=== PATIENT | female | born 1945 | race Two or more races ===

== ENCOUNTER 2018-11-19 17:33 | Emergency (ER) | payer MEDICARE, MEDICAID ==
[~2018-11-19] VITALS: Ht 152.4 cm; Wt 61.2 kg
[2018-11-19] MEDS ORDERED: ATOR10TA PO (17:50)
[2018-11-19] MEDS ORDERED: OMEP20CA10 PO (17:50)
[2018-11-19] MEDS ORDERED: GABA-534 PO (17:50)
[2018-11-19] MEDS ORDERED: SEVE800T8 PO (17:50)
[2018-11-19] MEDS ORDERED: FOLI1TAB16 PO (17:50)
[2018-11-19] MEDS ORDERED: ASPI81TA31 PO (17:50)
[2018-11-19] MEDS ORDERED: OMEG1CAP55 PO (17:50)
[2018-11-19] MEDS ORDERED: ACET-2605 PO (17:50)
[2018-11-19] MEDS ORDERED: DOCU-274 PO (17:50)
[2018-11-19 18:00] LABS: EOSINOPHILS # (AUTO) 0.1 K/uL (0.0-0.7); EOSINOPHILS % (AUTO) 1.2 % (0.0-7.0); HEMATOCRIT 33.7 % (31.2-41.9); HEMOGLOBIN 11.2 g/dL (10.9-14.3); LYMPHOCYTES # (AUTO) 0.8 K/uL (20.0-40.0); LYMPHOCYTES % (AUTO) 18.6 % (20.5-51.5); MEAN CORPUSCULAR HEMOGLOBIN 29.7 uug (24.7-32.8); MEAN CORPUSCULAR HGB CONC 33 g/dL (32.3-35.6); MEAN CORPUSCULAR VOLUME 89.4 fL (75.5-95.3); MONOCYTES # (AUTO) 0.6 K/uL (2.0-10.0); NEUTROPHILS # (AUTO) 2.9 K/uL (1.8-8.9); NEUTROPHILS % (AUTO) 66.2 % (38.5-71.5); PLATELET COUNT (AUTO) 110 K/uL (179-408); RED BLOOD CELL COUNT(AUTO) 3.77 MIL/uL (3.63-4.92); WHITE BLOOD COUNT (AUTO) 4.4 K/uL (3.8-11.8)
--- NOTE | 2018-11-19 18:00 | NUR ---
Attempted x2 to place HL for Pt and unable to. Pt refused to have another RN to place HL. Dr Holly made aware.
[2018-11-19 18:09] LABS: CARBON DIOXIDE 36 mmol/L (21-32); CHLORIDE 94 mmol/L (98-107); CREATININE 3.6 mg/dL (0.6-1.3); GLUCOSE 121 mg/dL (74-106); POTASSIUM 3.5 mmol/L (3.5-5.1); UREA NITROGEN, BLOOD 13 mg/dL (7-18)
[2018-11-19 18:15] LABS: ALANINE AMINOTRANSFERASE 13 U/L (14-59); ALKALINE PHOSPHATASE 156 U/L (50-136); ASPARTATE AMINOTRANSFERASE 10 U/L (15-37); BILIRUBIN,DIRECT 0.2 mg/dL (0.0-0.2); BILIRUBIN,TOTAL 0.4 mg/dL (0.2-1.0); TOTAL PROTEIN, SERUM 6.9 g/dL (6.4-8.2)
--- NOTE | 2018-11-19 18:26 | NUR ---
No acute bleeding noted on AV shunt on LUE, per MD clamp stays in place for now.
[2018-11-19] MEDS ORDERED: ONDANSETRON 4 MG/2 ML VIAL IV ONE (19:45)
[2018-11-19] MEDS ORDERED: MORPHINE SULFATE 4 MG/1 ML DISP.SYRIN IV ONE (19:45)
--- NOTE | 2018-11-19 20:03 | NUR ---
Dr. Davis speaking with Dr. Thomas.
--- NOTE | 2018-11-19 20:12 | NUR ---
Spoke to [employer] manager at [facility] regarding med surg bed for PT to be seen by Dr. Miller. Awaiting call back
[2018-11-19] MEDS ORDERED: MORPHINE SULFATE 4 MG/1 ML DISP.SYRIN ONE (20:47)
[2018-11-19] MEDS ORDERED: ONDANSETRON 4 MG/2 ML VIAL ONE (20:48)
--- NOTE | 2018-11-19 22:33 | NUR ---
Received call from [facility]. Pt is going to room 327, number to report to
== END 2018-11-19 22:40 | disposition short-term general hospital (02) ==
LOC: ER 17:36
DX: T82.318A Breakdown (mechanical) of other vascular grafts, initial encounter (principal); I25.10 Atherosclerotic heart disease of native coronary artery without angina pectoris; E78.00 Pure hypercholesterolemia, unspecified; I48.91 Unspecified atrial fibrillation; J45.909 Unspecified asthma, uncomplicated; N18.6 End stage renal disease; Z86.2 Personal history of diseases of the blood and blood-forming organs and certain disorders involving the immune mechanism; Z79.82 Long term (current) use of aspirin; Z79.899 Other long term (current) drug therapy
CPT/HCPCS: 36415; 71045; 80048; 80076; 84484; 85025; 85730; 86850; 86900; 86901; 93005; 96374; 96375; 99285; J2270; J2405; 70030-TC; A4663